=== PATIENT | female | born 1990 | race Caucasian/White ===

== ENCOUNTER → 2019-03-17 | Outpatient (CLI) | payer MEDICAID, SELFPAY | PROVIDERS: Family Provider Nurse Practitioner; Visit Provider Nurse Practitioner | DX: M25.461 Effusion, right knee (principal) | CPT/HCPCS: 73562 ==

== ENCOUNTER → 2019-04-02 15:04 | Outpatient (BNVA) | payer SELFPAY | PROVIDERS: Family Provider Nurse Practitioner; PCP Nurse Practitioner; Visit Provider Nurse Practitioner Psychiatric/Mental Health | DX: Z79.899 Other long term (current) drug therapy (principal) | CPT/HCPCS: 36415; 80178 ==

== ENCOUNTER 2019-04-13 07:53 | Outpatient (CLI) | payer SELFPAY ==
--- NOTE | 2019-04-13 08:08 | US_ITS ---
WS: [id number] ULTRASOUND BREAST RIGHT TECHNIQUE: Ultrasound right breast focused area of concern. CLINICAL INFORMATION: MASS OF AXILLARY TAIL OF RIGHT BREAST COMPARISON: None. FINDINGS: Ultrasound right breast axillary tail area of concern. In the area of concern is a slightly prominent lymph node measuring 1.7 x 0.8 x 1.5 CM. This is slightly enlarged with preserved fatty hilum. Findi ngs are nonspecific but likely reactive/inflammatory. No other abnormalities. US/US breast RT limited* [id number] IMPRESSION: BI-RADS 2 benign
== END 2019-04-13 07:54 | disposition home or self-care (01) ==
LOC: RAD 07:57
PROVIDERS: Family Provider Nurse Practitioner; PCP Nurse Practitioner; Visit Provider Nurse Practitioner
DX: N63.31 Unspecified lump in axillary tail of the right breast (principal)
CPT/HCPCS: 76642

== ENCOUNTER → 2019-07-15 08:26 | Outpatient (BNVA) | payer SELFPAY | PROVIDERS: Family Provider Nurse Practitioner; PCP Nurse Practitioner; Visit Provider Counselor Professional | DX: F42.9 Obsessive-compulsive disorder, unspecified (principal); F41.0 Panic disorder [episodic paroxysmal anxiety]; F41.1 Generalized anxiety disorder; F43.12 Post-traumatic stress disorder, chronic; F34.0 Cyclothymic disorder; F84.0 Autistic disorder | CPT/HCPCS: 90834 ==

== ENCOUNTER 2019-10-15 09:15 | Outpatient (CLI) | payer SELFPAY ==
[2019-10-15 10:02] LABS: Basophils # 0.1 10^3/uL (0.0-0.1); Basophils % 1.1 %; Eosinophils # 0.3 10^3/uL (0.0-0.8); Eosinophils % 5.8 %; Hematocrit 43.9 % (37.0-47.0); Hemoglobin 13.4 g/dL (11.5-15.3); Lymphocytes # 1.8 10^3/uL (0.8-4.8); Lymphocytes % 32.2 %; Mean Corpuscular HGB Conc 30.5 g/dL (30.0-36.0); Mean Corpuscular Hemoglobin 30.6 pg (28.0-34.0); Mean Corpuscular Volume 100.2 fL (81-99); Monocytes # 0.5 10^3/uL (0.2-0.9); Monocytes % 8.3 %; Neutrophils # 2.99 10^3/uL (1.8-7.7); Neutrophils % 52.4 %; Nucleated Red Blood Cells % 0 %; Platelet Count 229 10^3/cmm (130-400); Red Blood Count 4.38 10^6/uL (4.1-5.3); White Blood Count 5.7 10^3/uL (4.0-10.0)
[2019-10-15 10:31] LABS: Alanine Aminotransferase 13 U/L (0-33); Albumin Level 4.3 g/dL (3.5-5.2); Alkaline Phosphatase 57 IU/L (35-105); Anion Gap 13.7 (5-19); Aspartate Amino Transferase 20 U/L (0-32); Blood Urea Nitrogen 16 mg/dL (6-20); Calcium 9.2 mg/dL (8.5-10.5); Carbon Dioxide 22 mmol/L (22-29); Chloride 104 mmol/L (98-107); Globulin 2.8 g/dL (1.3-4.6); Glomerular Filtration Rate 85.4 mL/min (90-130); Glucose 91 mg/dL (65-115); Osmolality Calculated 276 mOsm/kg (285-295); Potassium 4.7 mmol/L (3.5-5.1); Sodium 135 mmol/L (136-145); Total Bilirubin 0.3 mg/dL (0.15-1.2); Total Protein 7.1 g/dL (6.6-8.7)
[2019-10-15 13:53] LABS: Lithium 1.1 mmol/L (0.6-1.2)
== END 2019-10-15 09:16 | disposition home or self-care (01) ==
LOC: LAB 09:17
PROVIDERS: Visit Provider Nurse Practitioner Psychiatric/Mental Health
DX: Z79.899 Other long term (current) drug therapy (principal)
CPT/HCPCS: 80053; 80178; 84443; 85025

== ENCOUNTER → 2019-11-24 08:07 | Outpatient (BNVA) | payer MEDICAID, SELFPAY | PROVIDERS: Visit Provider Nurse Practitioner Psychiatric/Mental Health | DX: F42.9 Obsessive-compulsive disorder, unspecified (principal); F34.0 Cyclothymic disorder; F84.0 Autistic disorder; F43.12 Post-traumatic stress disorder, chronic; F41.1 Generalized anxiety disorder; F41.0 Panic disorder [episodic paroxysmal anxiety]; Z91.5 Personal history of self-harm | CPT/HCPCS: 99214 ==

== ENCOUNTER → 2019-12-08 09:03 | Outpatient (BNVA) | payer MEDICAID, SELFPAY | PROVIDERS: Visit Provider Counselor Professional | DX: F41.0 Panic disorder [episodic paroxysmal anxiety] (principal); F43.12 Post-traumatic stress disorder, chronic; F42.9 Obsessive-compulsive disorder, unspecified; F41.1 Generalized anxiety disorder | CPT/HCPCS: 90834 ==

== ENCOUNTER → 2019-12-10 08:16 | Outpatient (BNVA) | payer MEDICAID, SELFPAY | PROVIDERS: Visit Provider Nurse Practitioner Psychiatric/Mental Health | DX: F42.9 Obsessive-compulsive disorder, unspecified (principal); F34.0 Cyclothymic disorder; F84.0 Autistic disorder; F43.12 Post-traumatic stress disorder, chronic; F41.1 Generalized anxiety disorder; F41.0 Panic disorder [episodic paroxysmal anxiety]; Z91.5 Personal history of self-harm | CPT/HCPCS: 99214 ==

== ENCOUNTER → 2020-02-08 13:00 | Outpatient (BNVA) | payer MEDICAID, SELFPAY | PROVIDERS: Visit Provider Nurse Practitioner Psychiatric/Mental Health | DX: F34.0 Cyclothymic disorder (principal); F50.81 Binge eating disorder; F84.0 Autistic disorder; F43.12 Post-traumatic stress disorder, chronic; F41.1 Generalized anxiety disorder; F41.0 Panic disorder [episodic paroxysmal anxiety]; Z91.5 Personal history of self-harm | CPT/HCPCS: 99214 ==

== ENCOUNTER → 2020-02-24 07:48 | Outpatient (BNVA) | payer MEDICAID, SELFPAY | PROVIDERS: Visit Provider Nurse Practitioner Psychiatric/Mental Health | DX: F34.0 Cyclothymic disorder (principal); F41.0 Panic disorder [episodic paroxysmal anxiety]; F41.1 Generalized anxiety disorder; F43.10 Post-traumatic stress disorder, unspecified; F43.12 Post-traumatic stress disorder, chronic; G47.00 Insomnia, unspecified; F50.81 Binge eating disorder; F84.0 Autistic disorder; Z91.5 Personal history of self-harm | CPT/HCPCS: 99214 ==

== ENCOUNTER → 2020-03-09 07:40 | Outpatient (BNVA) | payer MEDICAID, SELFPAY | PROVIDERS: Visit Provider Nurse Practitioner Psychiatric/Mental Health | DX: F43.12 Post-traumatic stress disorder, chronic (principal); F41.1 Generalized anxiety disorder; F34.0 Cyclothymic disorder; F50.81 Binge eating disorder; F84.0 Autistic disorder; G47.00 Insomnia, unspecified; F41.0 Panic disorder [episodic paroxysmal anxiety]; Z91.5 Personal history of self-harm | CPT/HCPCS: 99214 ==

== ENCOUNTER → 2020-04-11 08:25 | Outpatient (BNVA) | payer MEDICAID, SELFPAY | PROVIDERS: Visit Provider Nurse Practitioner Psychiatric/Mental Health | DX: F41.1 Generalized anxiety disorder (principal); F34.0 Cyclothymic disorder; F50.81 Binge eating disorder; F84.0 Autistic disorder; F43.12 Post-traumatic stress disorder, chronic; Z91.5 Personal history of self-harm | CPT/HCPCS: 99214 ==

== ENCOUNTER → 2020-04-25 09:27 | Outpatient (BNVA) | payer MEDICAID, SELFPAY | PROVIDERS: Visit Provider Nurse Practitioner Psychiatric/Mental Health | DX: F34.0 Cyclothymic disorder (principal); F50.81 Binge eating disorder; F84.0 Autistic disorder; F43.12 Post-traumatic stress disorder, chronic; F41.1 Generalized anxiety disorder; F41.0 Panic disorder [episodic paroxysmal anxiety]; Z91.5 Personal history of self-harm | CPT/HCPCS: 99214 ==

== ENCOUNTER → 2020-05-09 07:50 | Outpatient (BNVA) | payer MEDICAID, SELFPAY | PROVIDERS: Visit Provider Nurse Practitioner Psychiatric/Mental Health | DX: F34.0 Cyclothymic disorder (principal); F43.12 Post-traumatic stress disorder, chronic; F50.81 Binge eating disorder; F84.0 Autistic disorder; F41.1 Generalized anxiety disorder; F41.0 Panic disorder [episodic paroxysmal anxiety]; Z91.5 Personal history of self-harm | CPT/HCPCS: 99214 ==

== ENCOUNTER 2020-06-06 07:59 | Outpatient (CLI) | payer MEDICAID, SELFPAY ==
--- NOTE | 2020-06-06 08:00 | US_ITS ---
WS: [id number] ULTRASOUND RIGHT BREAST HISTORY: N63.10 - Unspecified lump in the right breast, unspecified quadrant COMPARISON: 04/13/2019 TECHNIQUE: 2-D and Doppler. Again noted is the benign-appearing lymph node in the RIGHT axilla measuring 1.7 x 1.3 x 0.7 cm. Verónica lar to the prior study from 04/13/2019. Normal central vascularity. There is an additional intramammar y lymph node in the RIGHT breast at 9:00. US/US breast RT limited* [id number] IMPRESSION: BI-RADS: 2-Benign FOLLOW-UP: See Report Stable benign RIGHT axillary lymph node since 04/13/2019. No suspicious findings .
== END 2020-06-06 08:00 | disposition home or self-care (01) ==
LOC: RAD 08:00
PROVIDERS: PCP Family Medicine; Visit Provider Obstetrics & Gynecology
DX: N63.10 Unspecified lump in the right breast, unspecified quadrant (principal)
CPT/HCPCS: 76642

== ENCOUNTER → 2020-07-04 08:03 | Outpatient (BNVA) | payer MEDICAID, SELFPAY | PROVIDERS: PCP Family Medicine; Visit Provider Nurse Practitioner Psychiatric/Mental Health | DX: F34.0 Cyclothymic disorder (principal); F43.12 Post-traumatic stress disorder, chronic; F41.1 Generalized anxiety disorder; F50.81 Binge eating disorder; F84.0 Autistic disorder; F41.0 Panic disorder [episodic paroxysmal anxiety]; Z91.5 Personal history of self-harm | CPT/HCPCS: 99214 ==

== ENCOUNTER → 2020-07-19 07:28 | Outpatient (BNVA) | payer MEDICAID, SELFPAY | PROVIDERS: PCP Family Medicine; Visit Provider Nurse Practitioner Psychiatric/Mental Health | DX: F34.0 Cyclothymic disorder (principal); F50.81 Binge eating disorder; F84.0 Autistic disorder; F43.12 Post-traumatic stress disorder, chronic; F41.1 Generalized anxiety disorder; F41.0 Panic disorder [episodic paroxysmal anxiety]; Z91.5 Personal history of self-harm | CPT/HCPCS: 99214 ==

== ENCOUNTER → 2020-07-26 07:49 | Outpatient (BNVA) | payer MEDICAID, SELFPAY | PROVIDERS: PCP Family Medicine; Visit Provider Social Worker | DX: F50.81 Binge eating disorder (principal); F41.1 Generalized anxiety disorder; F41.0 Panic disorder [episodic paroxysmal anxiety]; F43.12 Post-traumatic stress disorder, chronic; F84.0 Autistic disorder; F34.0 Cyclothymic disorder | CPT/HCPCS: 90834 ==

== ENCOUNTER → 2020-08-01 07:48 | Outpatient (BNVA) | payer MEDICAID, SELFPAY | PROVIDERS: PCP Family Medicine; Visit Provider Social Worker | DX: F50.81 Binge eating disorder (principal); F41.1 Generalized anxiety disorder; F41.0 Panic disorder [episodic paroxysmal anxiety]; F43.12 Post-traumatic stress disorder, chronic; F84.0 Autistic disorder; F34.0 Cyclothymic disorder | CPT/HCPCS: 90834 ==

== ENCOUNTER → 2020-08-02 08:03 | Outpatient (BNVA) | payer MEDICAID, SELFPAY | PROVIDERS: PCP Family Medicine; Visit Provider Nurse Practitioner Psychiatric/Mental Health | DX: F43.12 Post-traumatic stress disorder, chronic (principal); F34.0 Cyclothymic disorder; F50.81 Binge eating disorder; F84.0 Autistic disorder; Z03.89 Encounter for observation for other suspected diseases and conditions ruled out; F41.1 Generalized anxiety disorder; F41.0 Panic disorder [episodic paroxysmal anxiety]; Z91.5 Personal history of self-harm | CPT/HCPCS: 99214 ==

== ENCOUNTER → 2020-08-16 08:10 | Outpatient (BNVA) | payer MEDICAID, SELFPAY | PROVIDERS: PCP Family Medicine; Visit Provider Nurse Practitioner Psychiatric/Mental Health | DX: F32.81 Premenstrual dysphoric disorder (principal); F43.12 Post-traumatic stress disorder, chronic; F34.0 Cyclothymic disorder; F50.81 Binge eating disorder; F84.0 Autistic disorder; F41.1 Generalized anxiety disorder; Z91.5 Personal history of self-harm; F41.0 Panic disorder [episodic paroxysmal anxiety]; Z03.89 Encounter for observation for other suspected diseases and conditions ruled out | CPT/HCPCS: 99214 ==

== ENCOUNTER → 2020-08-17 08:10 | Outpatient (BNVA) | payer MEDICAID, SELFPAY | PROVIDERS: PCP Family Medicine; Visit Provider Nurse Practitioner Psychiatric/Mental Health | DX: Z03.89 Encounter for observation for other suspected diseases and conditions ruled out (principal) | CPT/HCPCS: 80053; 80061; 83036; 85025 ==

== ENCOUNTER → 2020-08-29 08:47 | Outpatient (BNVA) | payer MEDICAID, SELFPAY | PROVIDERS: PCP Family Medicine; Visit Provider Social Worker | DX: F41.1 Generalized anxiety disorder (principal); F41.0 Panic disorder [episodic paroxysmal anxiety]; F43.12 Post-traumatic stress disorder, chronic; F50.81 Binge eating disorder; F84.0 Autistic disorder | CPT/HCPCS: 90834 ==

== ENCOUNTER → 2020-08-30 07:25 | Outpatient (BNVA) | payer MEDICAID, SELFPAY | PROVIDERS: PCP Family Medicine; Visit Provider Nurse Practitioner Psychiatric/Mental Health | DX: F32.81 Premenstrual dysphoric disorder (principal); F34.0 Cyclothymic disorder; F50.81 Binge eating disorder; F84.0 Autistic disorder; F43.12 Post-traumatic stress disorder, chronic; F41.1 Generalized anxiety disorder; Z91.5 Personal history of self-harm; F41.0 Panic disorder [episodic paroxysmal anxiety] | CPT/HCPCS: 99214 ==

== ENCOUNTER → 2020-09-06 08:52 | Outpatient (BNVA) | payer MEDICAID, SELFPAY | PROVIDERS: PCP Family Medicine; Visit Provider Social Worker | DX: F41.1 Generalized anxiety disorder (principal); F41.0 Panic disorder [episodic paroxysmal anxiety]; F43.12 Post-traumatic stress disorder, chronic; F50.81 Binge eating disorder; F84.0 Autistic disorder; F34.0 Cyclothymic disorder | CPT/HCPCS: 90834 ==

== ENCOUNTER → 2020-09-13 07:29 | Outpatient (BNVA) | payer MEDICAID, SELFPAY | PROVIDERS: PCP Family Medicine; Visit Provider Nurse Practitioner Psychiatric/Mental Health | DX: F43.12 Post-traumatic stress disorder, chronic (principal); F32.81 Premenstrual dysphoric disorder; F34.0 Cyclothymic disorder; F50.81 Binge eating disorder; F84.0 Autistic disorder; F41.1 Generalized anxiety disorder; Z91.5 Personal history of self-harm; F41.0 Panic disorder [episodic paroxysmal anxiety] | CPT/HCPCS: 99214 ==

== ENCOUNTER → 2020-09-20 09:47 | Outpatient (BNVA) | payer MEDICAID, SELFPAY | PROVIDERS: PCP Family Medicine; Visit Provider Social Worker | DX: F41.1 Generalized anxiety disorder (principal); F43.12 Post-traumatic stress disorder, chronic; F50.81 Binge eating disorder | CPT/HCPCS: 90834; 90839 ==

== ENCOUNTER → 2020-09-26 08:49 | Outpatient (BNVA) | payer MEDICAID, SELFPAY | PROVIDERS: PCP Family Medicine; Visit Provider Social Worker | DX: F43.12 Post-traumatic stress disorder, chronic (principal); F41.1 Generalized anxiety disorder; F50.81 Binge eating disorder | CPT/HCPCS: 90834 ==

== ENCOUNTER → 2020-09-30 08:15 | Outpatient (BNVA) | payer MEDICAID, SELFPAY | PROVIDERS: PCP Family Medicine; Visit Provider Nurse Practitioner Psychiatric/Mental Health | DX: F32.81 Premenstrual dysphoric disorder (principal); F43.12 Post-traumatic stress disorder, chronic; F34.0 Cyclothymic disorder; F50.81 Binge eating disorder; F84.0 Autistic disorder; F41.1 Generalized anxiety disorder; Z91.5 Personal history of self-harm; F41.0 Panic disorder [episodic paroxysmal anxiety] | CPT/HCPCS: 99214 ==

== ENCOUNTER → 2020-10-03 08:47 | Outpatient (BNVA) | payer MEDICAID, SELFPAY | PROVIDERS: PCP Family Medicine; Visit Provider Social Worker | DX: F43.12 Post-traumatic stress disorder, chronic (principal); F41.1 Generalized anxiety disorder; F50.81 Binge eating disorder | CPT/HCPCS: 90834 ==

== ENCOUNTER → 2020-10-10 09:45 | Outpatient (BNVA) | payer MEDICAID, SELFPAY | PROVIDERS: PCP Family Medicine; Visit Provider Social Worker | DX: F43.12 Post-traumatic stress disorder, chronic (principal); F41.1 Generalized anxiety disorder; F50.81 Binge eating disorder | CPT/HCPCS: 90834 ==

== ENCOUNTER → 2020-10-17 08:53 | Outpatient (BNVA) | payer MEDICAID, SELFPAY | PROVIDERS: PCP Family Medicine; Visit Provider Social Worker | DX: F43.12 Post-traumatic stress disorder, chronic (principal); F41.1 Generalized anxiety disorder; F50.81 Binge eating disorder | CPT/HCPCS: 90834 ==

== ENCOUNTER → 2020-10-21 07:16 | Outpatient (BNVA) | payer MEDICAID, SELFPAY | PROVIDERS: PCP Family Medicine; Visit Provider Nurse Practitioner Psychiatric/Mental Health | DX: F32.81 Premenstrual dysphoric disorder (principal); F34.0 Cyclothymic disorder; F50.81 Binge eating disorder; F84.0 Autistic disorder; F43.12 Post-traumatic stress disorder, chronic; F41.1 Generalized anxiety disorder; Z91.5 Personal history of self-harm; F41.0 Panic disorder [episodic paroxysmal anxiety] | CPT/HCPCS: 99214 ==

== ENCOUNTER → 2020-10-24 10:53 | Outpatient (BNVA) | payer MEDICAID, SELFPAY | PROVIDERS: PCP Family Medicine; Visit Provider Social Worker | DX: F43.12 Post-traumatic stress disorder, chronic (principal); F41.1 Generalized anxiety disorder; F50.81 Binge eating disorder | CPT/HCPCS: 90834 ==

== ENCOUNTER → 2020-10-31 08:48 | Outpatient (BNVA) | payer MEDICAID, SELFPAY | PROVIDERS: PCP Family Medicine; Visit Provider Social Worker | DX: F43.12 Post-traumatic stress disorder, chronic (principal); F41.1 Generalized anxiety disorder; F50.81 Binge eating disorder | CPT/HCPCS: 90834 ==

== ENCOUNTER → 2020-11-07 08:03 | Outpatient (BNVA) | payer MEDICAID, SELFPAY | PROVIDERS: PCP Family Medicine; Visit Provider Nurse Practitioner Psychiatric/Mental Health | DX: F43.12 Post-traumatic stress disorder, chronic (principal); F84.0 Autistic disorder; F32.81 Premenstrual dysphoric disorder; F34.0 Cyclothymic disorder; F50.81 Binge eating disorder; Z91.5 Personal history of self-harm; F41.0 Panic disorder [episodic paroxysmal anxiety] | CPT/HCPCS: 99214 ==

== ENCOUNTER → 2020-11-08 07:50 | Outpatient (BNVA) | payer MEDICAID, SELFPAY | PROVIDERS: PCP Family Medicine; Visit Provider Social Worker | DX: F43.12 Post-traumatic stress disorder, chronic (principal); F41.1 Generalized anxiety disorder; F50.81 Binge eating disorder | CPT/HCPCS: 90834 ==

== ENCOUNTER → 2020-11-15 07:53 | Outpatient (BNVA) | payer MEDICAID, SELFPAY | PROVIDERS: PCP Family Medicine; Visit Provider Social Worker | DX: F43.12 Post-traumatic stress disorder, chronic (principal); F41.1 Generalized anxiety disorder; F50.81 Binge eating disorder | CPT/HCPCS: 90834 ==

== ENCOUNTER → 2020-11-22 07:44 | Outpatient (BNVA) | payer MEDICAID, SELFPAY | PROVIDERS: PCP Family Medicine; Visit Provider Social Worker | DX: F43.12 Post-traumatic stress disorder, chronic (principal); F41.1 Generalized anxiety disorder; F50.81 Binge eating disorder | CPT/HCPCS: 90834 ==

== ENCOUNTER → 2020-11-28 07:49 | Outpatient (BNVA) | payer MEDICAID, SELFPAY | PROVIDERS: PCP Family Medicine; Visit Provider Social Worker | DX: F43.12 Post-traumatic stress disorder, chronic (principal); F41.1 Generalized anxiety disorder; F50.81 Binge eating disorder | CPT/HCPCS: 90834 ==

== ENCOUNTER → 2020-12-05 07:38 | Outpatient (BNVA) | payer MEDICAID, SELFPAY | PROVIDERS: PCP Family Medicine; Visit Provider Nurse Practitioner Psychiatric/Mental Health | DX: F84.0 Autistic disorder (principal); F34.0 Cyclothymic disorder; F50.81 Binge eating disorder; F43.12 Post-traumatic stress disorder, chronic; F41.1 Generalized anxiety disorder; F41.0 Panic disorder [episodic paroxysmal anxiety]; F32.81 Premenstrual dysphoric disorder | CPT/HCPCS: 99214 ==

== ENCOUNTER → 2020-12-13 12:51 | Outpatient (BNVA) | payer MEDICAID, SELFPAY | PROVIDERS: PCP Family Medicine; Visit Provider Social Worker | DX: F43.12 Post-traumatic stress disorder, chronic (principal); F41.1 Generalized anxiety disorder; F50.81 Binge eating disorder | CPT/HCPCS: 90834 ==

== ENCOUNTER → 2020-12-19 07:49 | Outpatient (BNVA) | payer MEDICAID, SELFPAY | PROVIDERS: PCP Family Medicine; Visit Provider Social Worker | DX: F43.12 Post-traumatic stress disorder, chronic (principal); F41.1 Generalized anxiety disorder; F50.81 Binge eating disorder | CPT/HCPCS: 90834 ==

== ENCOUNTER → 2020-12-26 07:53 | Outpatient (BNVA) | payer MEDICAID, SELFPAY | PROVIDERS: PCP Family Medicine; Visit Provider Social Worker | DX: F43.12 Post-traumatic stress disorder, chronic (principal); F41.1 Generalized anxiety disorder; F50.81 Binge eating disorder | CPT/HCPCS: 90834 ==

== ENCOUNTER → 2021-01-02 07:50 | Outpatient (BNVA) | payer MEDICAID, SELFPAY | PROVIDERS: PCP Family Medicine; Visit Provider Social Worker | DX: F43.12 Post-traumatic stress disorder, chronic (principal); F41.1 Generalized anxiety disorder; F50.81 Binge eating disorder | CPT/HCPCS: 90834 ==

== ENCOUNTER → 2021-01-04 07:48 | Outpatient (BNVA) | payer MEDICAID, SELFPAY | PROVIDERS: PCP Family Medicine; Visit Provider Counselor Professional | DX: F43.12 Post-traumatic stress disorder, chronic (principal); F41.1 Generalized anxiety disorder; F50.81 Binge eating disorder | CPT/HCPCS: 90847 ==

== ENCOUNTER → 2021-01-05 07:59 | Outpatient (BNVA) | payer MEDICAID, SELFPAY | PROVIDERS: PCP Family Medicine; Visit Provider Nurse Practitioner Psychiatric/Mental Health | DX: F84.0 Autistic disorder (principal); F34.0 Cyclothymic disorder; F50.81 Binge eating disorder; F43.12 Post-traumatic stress disorder, chronic; F41.1 Generalized anxiety disorder | CPT/HCPCS: 99214 ==

== ENCOUNTER → 2021-01-09 07:49 | Outpatient (BNVA) | payer MEDICAID, SELFPAY | PROVIDERS: PCP Family Medicine; Visit Provider Social Worker | DX: F43.12 Post-traumatic stress disorder, chronic (principal); F41.1 Generalized anxiety disorder; F50.81 Binge eating disorder | CPT/HCPCS: 90834 ==

== ENCOUNTER → 2021-01-16 07:56 | Outpatient (BNVA) | payer MEDICAID, SELFPAY | PROVIDERS: PCP Family Medicine; Visit Provider Social Worker | DX: F43.12 Post-traumatic stress disorder, chronic (principal); F41.1 Generalized anxiety disorder; F50.81 Binge eating disorder | CPT/HCPCS: 90834 ==

== ENCOUNTER → 2021-01-23 07:50 | Outpatient (BNVA) | payer MEDICAID, SELFPAY | PROVIDERS: PCP Family Medicine; Visit Provider Social Worker | DX: F43.12 Post-traumatic stress disorder, chronic (principal); F41.1 Generalized anxiety disorder; F50.81 Binge eating disorder | CPT/HCPCS: 90834 ==

== ENCOUNTER → 2021-01-25 07:55 | Outpatient (BNVA) | payer MEDICAID, SELFPAY | PROVIDERS: PCP Family Medicine; Visit Provider Counselor Professional | DX: F43.12 Post-traumatic stress disorder, chronic (principal); F41.1 Generalized anxiety disorder; F50.81 Binge eating disorder | CPT/HCPCS: 90837 ==

== ENCOUNTER → 2021-02-03 08:11 | Outpatient (BNVA) | payer MEDICAID, SELFPAY | PROVIDERS: PCP Family Medicine; Visit Provider Nurse Practitioner Psychiatric/Mental Health | DX: F84.0 Autistic disorder (principal); F34.0 Cyclothymic disorder; F50.81 Binge eating disorder; F43.12 Post-traumatic stress disorder, chronic; F41.1 Generalized anxiety disorder | CPT/HCPCS: 99214 ==

== ENCOUNTER → 2021-02-06 09:48 | Outpatient (BNVA) | payer MEDICAID, SELFPAY | PROVIDERS: PCP Family Medicine; Visit Provider Social Worker | DX: F43.12 Post-traumatic stress disorder, chronic (principal); F41.1 Generalized anxiety disorder; F50.81 Binge eating disorder | CPT/HCPCS: 90834 ==

== ENCOUNTER → 2021-02-13 08:52 | Outpatient (BNVA) | payer MEDICAID, SELFPAY | PROVIDERS: PCP Family Medicine; Visit Provider Social Worker | DX: F43.12 Post-traumatic stress disorder, chronic (principal); F41.1 Generalized anxiety disorder; F50.81 Binge eating disorder | CPT/HCPCS: 90834 ==

== ENCOUNTER → 2021-02-22 07:52 | Outpatient (BNVA) | payer MEDICAID, SELFPAY | PROVIDERS: PCP Family Medicine; Visit Provider Counselor Professional | DX: F43.12 Post-traumatic stress disorder, chronic (principal); F41.1 Generalized anxiety disorder; F50.81 Binge eating disorder | CPT/HCPCS: 90834 ==

== ENCOUNTER → 2021-02-24 12:34 | Outpatient (BNVA) | payer MEDICAID, SELFPAY | PROVIDERS: PCP Family Medicine; Visit Provider Nurse Practitioner Psychiatric/Mental Health | DX: F84.0 Autistic disorder (principal); F34.0 Cyclothymic disorder; F43.12 Post-traumatic stress disorder, chronic; F41.1 Generalized anxiety disorder; F50.81 Binge eating disorder | CPT/HCPCS: 99214 ==

== ENCOUNTER → 2021-02-28 07:48 | Outpatient (BNVA) | payer MEDICAID, SELFPAY | PROVIDERS: PCP Family Medicine; Visit Provider Social Worker | DX: F43.12 Post-traumatic stress disorder, chronic (principal); F41.1 Generalized anxiety disorder; F50.81 Binge eating disorder | CPT/HCPCS: 90834 ==

== ENCOUNTER → 2021-03-06 07:51 | Outpatient (BNVA) | payer MEDICAID, SELFPAY | PROVIDERS: PCP Family Medicine; Visit Provider Social Worker | DX: F43.12 Post-traumatic stress disorder, chronic (principal); F41.1 Generalized anxiety disorder; F50.81 Binge eating disorder | CPT/HCPCS: 90834 ==

== ENCOUNTER → 2021-03-13 08:52 | Outpatient (BNVA) | payer MEDICAID, SELFPAY | PROVIDERS: PCP Family Medicine; Visit Provider Social Worker | DX: F43.12 Post-traumatic stress disorder, chronic (principal); F41.1 Generalized anxiety disorder; F50.81 Binge eating disorder | CPT/HCPCS: 90834 ==

== ENCOUNTER → 2021-03-20 07:48 | Outpatient (BNVA) | payer MEDICAID, SELFPAY | PROVIDERS: PCP Family Medicine; Visit Provider Social Worker | DX: F43.12 Post-traumatic stress disorder, chronic (principal); F41.1 Generalized anxiety disorder; F50.81 Binge eating disorder | CPT/HCPCS: 90837; 90834 ==

== ENCOUNTER → 2021-03-29 07:42 | Outpatient (BNVA) | payer MEDICAID, SELFPAY | PROVIDERS: PCP Family Medicine; Visit Provider Nurse Practitioner Psychiatric/Mental Health | DX: F84.0 Autistic disorder (principal); F34.0 Cyclothymic disorder; F50.81 Binge eating disorder; F43.12 Post-traumatic stress disorder, chronic; F41.1 Generalized anxiety disorder | CPT/HCPCS: 99214 ==

== ENCOUNTER → 2021-04-03 07:50 | Outpatient (BNVA) | payer MEDICAID, SELFPAY | PROVIDERS: PCP Family Medicine; Visit Provider Social Worker | DX: F43.12 Post-traumatic stress disorder, chronic (principal); F41.1 Generalized anxiety disorder; F50.81 Binge eating disorder | CPT/HCPCS: 90834 ==

== ENCOUNTER → 2021-04-10 07:52 | Outpatient (BNVA) | payer MEDICAID, SELFPAY | PROVIDERS: PCP Family Medicine; Visit Provider Social Worker | DX: F41.1 Generalized anxiety disorder (principal); F43.12 Post-traumatic stress disorder, chronic; F50.81 Binge eating disorder | CPT/HCPCS: 90834 ==

== ENCOUNTER → 2021-04-17 07:58 | Outpatient (BNVA) | payer MEDICAID, SELFPAY | PROVIDERS: PCP Family Medicine; Visit Provider Social Worker | DX: F43.12 Post-traumatic stress disorder, chronic (principal); F41.1 Generalized anxiety disorder; F50.81 Binge eating disorder | CPT/HCPCS: 90834 ==

== ENCOUNTER → 2021-04-24 07:57 | Outpatient (BNVA) | payer MEDICAID, SELFPAY | PROVIDERS: PCP Family Medicine; Visit Provider Social Worker | DX: F43.12 Post-traumatic stress disorder, chronic (principal); F41.1 Generalized anxiety disorder; F50.81 Binge eating disorder | CPT/HCPCS: 90834 ==

== ENCOUNTER → 2021-05-01 07:53 | Outpatient (BNVA) | payer MEDICAID, SELFPAY | PROVIDERS: PCP Family Medicine; Visit Provider Social Worker | DX: F43.12 Post-traumatic stress disorder, chronic (principal); F41.1 Generalized anxiety disorder; F50.81 Binge eating disorder | CPT/HCPCS: 90837; 90834 ==

== ENCOUNTER → 2021-05-08 07:53 | Outpatient (BNVA) | payer MEDICAID, SELFPAY | PROVIDERS: PCP Family Medicine; Visit Provider Social Worker | DX: F43.12 Post-traumatic stress disorder, chronic (principal); F41.1 Generalized anxiety disorder; F50.81 Binge eating disorder | CPT/HCPCS: 90834 ==

== ENCOUNTER → 2021-05-15 07:49 | Outpatient (BNVA) | payer MEDICAID, SELFPAY | PROVIDERS: PCP Family Medicine; Visit Provider Social Worker | DX: F43.12 Post-traumatic stress disorder, chronic (principal); F41.1 Generalized anxiety disorder; F50.81 Binge eating disorder | CPT/HCPCS: 90834 ==

== ENCOUNTER → 2021-05-22 07:52 | Outpatient (BNVA) | payer MEDICAID, SELFPAY | PROVIDERS: PCP Family Medicine; Visit Provider Social Worker | DX: F43.12 Post-traumatic stress disorder, chronic (principal); F41.1 Generalized anxiety disorder; F50.81 Binge eating disorder | CPT/HCPCS: 90834 ==

== ENCOUNTER → 2021-05-29 08:08 | Outpatient (BNVA) | payer MEDICAID, SELFPAY | PROVIDERS: PCP Family Medicine; Visit Provider Nurse Practitioner Psychiatric/Mental Health | DX: F84.0 Autistic disorder (principal); F34.0 Cyclothymic disorder; F50.81 Binge eating disorder; F43.12 Post-traumatic stress disorder, chronic; F41.1 Generalized anxiety disorder | CPT/HCPCS: 99214 ==

== ENCOUNTER → 2021-06-07 08:33 | Outpatient (BNVA) | payer MEDICAID, SELFPAY | PROVIDERS: PCP Family Medicine; Visit Provider Social Worker | DX: F43.12 Post-traumatic stress disorder, chronic (principal); F41.1 Generalized anxiety disorder; F50.81 Binge eating disorder | CPT/HCPCS: 90834 ==

== ENCOUNTER → 2021-06-12 07:58 | Outpatient (BNVA) | payer MEDICAID, SELFPAY | PROVIDERS: PCP Family Medicine; Visit Provider Social Worker | DX: F43.12 Post-traumatic stress disorder, chronic (principal); F41.1 Generalized anxiety disorder; F50.81 Binge eating disorder | CPT/HCPCS: 90834 ==

== ENCOUNTER → 2021-06-19 07:53 | Outpatient (BNVA) | payer MEDICAID, SELFPAY | PROVIDERS: PCP Family Medicine; Visit Provider Social Worker | DX: F43.12 Post-traumatic stress disorder, chronic (principal); F41.1 Generalized anxiety disorder; F50.81 Binge eating disorder | CPT/HCPCS: 90837; 90834 ==

== ENCOUNTER → 2021-07-03 07:52 | Outpatient (BNVA) | payer MEDICAID, SELFPAY | PROVIDERS: PCP Family Medicine; Visit Provider Social Worker | DX: F43.12 Post-traumatic stress disorder, chronic (principal); F41.1 Generalized anxiety disorder; F50.81 Binge eating disorder | CPT/HCPCS: 90834 ==

== ENCOUNTER → 2021-07-11 08:11 | Outpatient (BNVA) | payer MEDICAID, SELFPAY | PROVIDERS: PCP Family Medicine; Visit Provider Social Worker | DX: F43.12 Post-traumatic stress disorder, chronic (principal); F41.1 Generalized anxiety disorder; F50.81 Binge eating disorder | CPT/HCPCS: 90834 ==

== ENCOUNTER → 2021-07-17 07:57 | Outpatient (BNVA) | payer MEDICAID, SELFPAY | PROVIDERS: PCP Family Medicine; Visit Provider Social Worker | DX: F43.12 Post-traumatic stress disorder, chronic (principal); F41.1 Generalized anxiety disorder; F50.81 Binge eating disorder | CPT/HCPCS: 90837; 90834 ==

== ENCOUNTER → 2021-07-18 07:23 | Outpatient (BNVA) | payer MEDICAID, SELFPAY | PROVIDERS: PCP Family Medicine; Visit Provider Nurse Practitioner Psychiatric/Mental Health | DX: F84.0 Autistic disorder (principal); F34.0 Cyclothymic disorder; F50.81 Binge eating disorder; F43.12 Post-traumatic stress disorder, chronic; Z79.899 Other long term (current) drug therapy; F41.1 Generalized anxiety disorder | CPT/HCPCS: 99214 ==

== ENCOUNTER → 2021-07-24 07:56 | Outpatient (BNVA) | payer MEDICAID, SELFPAY | PROVIDERS: PCP Family Medicine; Visit Provider Social Worker | DX: F43.12 Post-traumatic stress disorder, chronic (principal); F41.1 Generalized anxiety disorder; F50.81 Binge eating disorder | CPT/HCPCS: 90834 ==

== ENCOUNTER → 2021-08-07 08:00 | Outpatient (BNVA) | payer MEDICAID, SELFPAY | PROVIDERS: PCP Family Medicine; Visit Provider Social Worker | DX: F43.12 Post-traumatic stress disorder, chronic (principal); F41.1 Generalized anxiety disorder; F50.81 Binge eating disorder | CPT/HCPCS: 90834 ==

== ENCOUNTER → 2021-08-15 10:01 | Outpatient (BNVA) | payer MEDICAID, SELFPAY | PROVIDERS: PCP Family Medicine; Visit Provider Social Worker | DX: F41.1 Generalized anxiety disorder (principal); F43.12 Post-traumatic stress disorder, chronic; F50.81 Binge eating disorder | CPT/HCPCS: 90834 ==

== ENCOUNTER → 2021-08-28 09:58 | Outpatient (BNVA) | payer MEDICAID, SELFPAY | PROVIDERS: PCP Family Medicine; Visit Provider Social Worker | DX: F43.12 Post-traumatic stress disorder, chronic (principal); F41.1 Generalized anxiety disorder; F50.81 Binge eating disorder | CPT/HCPCS: 90837; 90834 ==

== ENCOUNTER → 2021-09-04 08:57 | Outpatient (BNVA) | payer MEDICAID, SELFPAY | PROVIDERS: PCP Family Medicine; Visit Provider Social Worker | DX: F43.12 Post-traumatic stress disorder, chronic (principal); F41.1 Generalized anxiety disorder; F50.81 Binge eating disorder | CPT/HCPCS: 90834 ==

== ENCOUNTER → 2021-09-11 09:00 | Outpatient (BNVA) | payer MEDICAID, SELFPAY | PROVIDERS: PCP Family Medicine; Visit Provider Social Worker | DX: F43.12 Post-traumatic stress disorder, chronic (principal); F41.1 Generalized anxiety disorder; F50.81 Binge eating disorder | CPT/HCPCS: 90834 ==

== ENCOUNTER → 2022-01-23 14:45 | Outpatient (BNVA) | payer MEDICAID, SELFPAY | PROVIDERS: PCP Family Medicine; Visit Provider Nurse Practitioner Psychiatric/Mental Health | DX: Z79.899 Other long term (current) drug therapy (principal) | CPT/HCPCS: 80053; 80061; 83036 ==

== ENCOUNTER → 2023-02-15 08:58 | Outpatient (BNVA) | payer MEDICAID, SELFPAY | PROVIDERS: PCP Family Medicine; Visit Provider Nurse Practitioner Psychiatric/Mental Health | DX: Z79.899 Other long term (current) drug therapy (principal); F50.81 Binge eating disorder; F84.0 Autistic disorder; F34.0 Cyclothymic disorder; F43.12 Post-traumatic stress disorder, chronic; F41.1 Generalized anxiety disorder | CPT/HCPCS: 80053; 80061; 83036 ==

== ENCOUNTER → 2024-03-12 11:59 | Outpatient (BNVA) | payer OTHER, SELFPAY | PROVIDERS: PCP Family Medicine; Visit Provider Nurse Practitioner Family | DX: S69.92XA Unspecified injury of left wrist, hand and finger(s), initial encounter (principal); X58.XXXA Exposure to other specified factors, initial encounter | CPT/HCPCS: 73110; 73130 ==